=== PATIENT | male | born 1995 ===

== ENCOUNTER 2024-11-19 16:08 | Observation (INO) | payer BC, OTHER ==
[2024-11-19] MEDS ORDERED: ACETAMINOPHEN 500 MG TAB ONE (16:48)
[2024-11-19 16:51] LABS: Absolute Lymphocytes (CBC) 2.8 K/uL (0.7-4.9); Hematocrit 46.3 % (39.6-49.0); Hemoglobin 16.1 g/dL (13.6-17.9); MCH 30.1 pg (27.0-35.0); MCHC 34.9 g/dL (32.0-36.0); MCV 86.3 fL (80-100); MPV 7.9 fL (7.6-11.3); Nucleated RBC Absolute Count 0.0 (0-0); Nucleated Red Blood Cells % 0.1 % (0-0); RBC Red Blood Cell Count 5.36 M/uL (4.33-5.43); White Blood Count 7.90 thou/uL (4.3-10.9)
--- NOTE | 2024-11-19 17:00 | RAD REPORT ---
EXAM: Chest Single View HISTORY: 29 years Male syncope COMPARISON: No prior exams FINDINGS: LUNGS/PLEURA: The lungs are clear. No pleural effusions or pneumothorax. No pulmonary edema. CARDIAC/MEDIASTINUM: The cardiac silhouette is within normal limits. UPPER ABDOMEN: No significant abnormality. BONES: No acute abnormality. LINES/TUBES/OTHER: N/A IMPRESSION: No evidence of acute cardiopulmonary disease.
[2024-11-19 17:09] LABS: ALT/SGPT 103 U/L (16-61); AST/SGOT 33 U/L (15-37); Albumin 4.3 g/dL (3.4-5.0); Albumin/Globulin Ratio 1.2 (1.1-1.8); Alkaline Phosphatase 49 U/L (45-117); Anion Gap 13.2 mEq/L (5.0-15.0); BUN Blood Urea Nitrogen 12 mg/dL (7-18); Bilirubin Indirect, Calculated 0.6 mg/dL (0.2-0.8); Globulin 3.6 g/dL (2.3-3.5); Glucose Level 111 mg/dL (74-106); Magnesium 1.9 mg/dL (1.6-2.4); Potassium 3.2 mEq/L (3.5-5.1); Troponin High Sensitivity 5.9 pg/mL (<58.9)
[2024-11-19 17:13] LABS: NT PRO-BNP < 5 pg/mL (<125)
[2024-11-19 17:16] LABS: D-Dimer 0.241 FEUug/mL (0-0.500); PT Prothrombin Time 13.7 SECONDS (10-13.0); Protime INR 1.22
--- NOTE | 2024-11-19 17:17 | RAD REPORT ---
EXAMINATION: Head Brain Wo Cont CLINICAL INDICATION: Male, 29 years old.SYNCOPE TECHNIQUE: Axial CT images from the skull base to the vertex without intravenous contrast. Coronal an d sagittal reformatted images were created from the data set. One or more of the following dose reduction techniques were used: Automated exposure control, adjustment of the mA and/or kV according to patient size, and/or iterative reconstruction. Unless otherwise specified, incidental findings do not require dedicated imaging follow-up. [id number]. COMPARISON: No prior exams FINDINGS: INTRACRANIAL: No acute intracranial hemorrhage. No acute large vascular territory infarct. No hydroce phalus. No mass effect or midline shift. No significant white matter disease. VASCULATURE: No visualized abnormalities in the arteries or dural venous sinuses. SCALP/SKULL: No calvarial fracture identified. No acute soft tissue abnormality. SINUSES: Trace bilateral maxillary sinus thickening. No significant mastoid fluid. IMPRESSION: No acute intracranial abnormality.
[2024-11-19] MEDS ORDERED: POTASSIUM 25 MEQ EFFERV TAB ONE (19:35)
--- NOTE | 2024-11-19 21:14 | ER ---
Nurse's Notes [facility] Name: Isaac Iqbal Age: 29 yrs Sex: Male : 1995 Arrival Date: 11/19/2024 Time: 16:08 Bed 3 Private MD: Diagnosis: Syncope;Hypokalemia Presentation: 11/19 16:16 Chief complaint: Patient states: STATES FELT LIGHT HEADED AND THEN STARTED TO "PASS db OUT" EMS EVALUATED HR 130. PT CAME BY PRIVATE VEHICLE. STATES FEELS LIGHT HEADED. FACE FELT FLUSHED. FACE BECAME RED AND THEN COULDN'T SEE WELL , VISION BECAME BLURRY AND PEED SELF. Coronavirus screen: Client denies travel out of the [place] in the last 14 days. At this time, the client does not indicate any symptoms associated with coronavirus-19. Ebola Screen: Patient negative for fever greater than or equal to 101.5 degrees Fahrenheit, and additional compatible Ebola Virus Disease symptoms Patient denies exposure to infectious person. Patient denies travel to an Ebola-affected area in the 21 days before illness onset. No symptoms or risks identified at this time. Initial Sepsis Screen: Does the patient meet any 2 criteria? No. Patient's initial sepsis screen is negative. Does the patient have a suspected source of infection? No. Patient's initial sepsis screen is negative. Risk Assessment: Do you want to hurt yourself or someone else? Patient reports no desire to harm self or others. Onset of symptoms was November 19, 2024. 16:16 Method Of Arrival: Ambulatory db 16:16 Acuity: MEIR 3 db Triage Assessment: 16:20 General: Appears in no apparent distress. comfortable, Behavior is calm, cooperative. db Pain: Complains of pain in head. Neuro: Level of Consciousness is awake, alert, obeys commands, Oriented to person, place, time, situation, Reports blurred vision a syncopal episode weakness. Respiratory: Airway is patent Respiratory effort is even, unlabored, Respiratory pattern is regular, symmetrical. Historical: - Allergies: 16:20 No Known Allergies; db - PMHx: 16:20 None; db - PSHx: 16:20 None; db - Immunization history:: Adult Immunizations unknown. - Infectious Disease History:: Denies. - Social history:: Smoking status: Patient denies any tobacco usage or history of. Screenin:20 [facility] ED Fall Risk Assessment (Adult) History of falling in the last 3 months, aa5 including since admission No falls in past 3 months (0 pts) Confusion or Disorientation No (0 pts) Intoxicated or Sedated No (0 pts) Impaired Gait No (0 pts) Mobility Assist Device Used No (0 pt) Altered Elimination No (0 pt) Score/Fall Risk Level 0 - 2 = Low Risk Oriented to surroundings, Maintained a safe environment, Educated pt \\T\\ family on fall prevention, incl call for assistance when getting out of bed, Assessed \\T\\ reinforced patient's understanding of fall precautions. Abuse screen: Denies threats or abuse. Nutritional screening: No deficits noted. Tuberculosis screening: No symptoms or risk factors identified. Assessment: 16:20 General: Appears comfortable, Behavior is calm, cooperative, Pt's reports probable aa5 seizure activity, pt's states "he wasn't shaking but he became very stiff and was out of it for a while" . Pain: Complains of pain in occipital area and base of the skull Pain radiates to forehead Pain currently is 5 out of 10 on a pain scale. Quality of pain is described as aching, pressure, Pain began "after passing out" Is continuous. Neuro: Level of Consciousness is awake, alert, obeys commands, Oriented to person, place, time, situation, Club Car Attendant are equal bilaterally Moves all extremities. Gait is steady, Speech is normal, Facial symmetry appears normal, Reports headache. Cardiovascular: Heart tones S1 S2 present Rhythm is regular. Respiratory: Airway is patent Respiratory effort is even, unlabored, Respiratory pattern is regular, symmetrical. GI: Patient currently denies diarrhea, nausea, vomiting. : Pt's reported pt voided on himself during probable seizure episode. EENT: Reports nasal congestion that is chronic from seasonal allergies. Derm: Skin is pink, warm \\T\\ dry. Musculoskeletal: Range of motion: intact in all extremities. 16:20 Reassessment: Pt states "We were at a restaurant and it was toward the end of the meal aa5 when I started feeling flushed, dizzy, and my vision was going out; I think I passed out because I remember just waking up on the floor afterwards" . 16:52 Reassessment: Patient is alert, oriented x 3, equal unlabored respirations, skin aa5 warm/dry/pink. 19:00 Reassessment: Report received from OMAR Metzger. cc6 19:00 General: Appears in no apparent distress. comfortable, Behavior is calm, cooperative. cc6 Pain: Denies pain. Neuro: Level of Consciousness is awake, alert, obeys commands, Oriented to person, place, time, situation. Cardiovascular: Patient's skin is warm and dry. Rhythm is sinus rhythm. Respiratory: Airway is patent Respiratory effort is even, unlabored, Respiratory pattern is regular, symmetrical. GI: No signs and/or symptoms were reported involving the gastrointestinal system. : No signs and/or symptoms were reported regarding the genitourinary system. EENT: No signs and/or symptoms were reported regarding the EENT system. Derm: No signs and/or symptoms reported regarding the dermatologic system. Musculoskeletal: Range of motion: intact in all extremities. 20:00 Reassessment: Patient and/or family updated on plan of care and expected duration. Pain ha1 level reassessed. Patient is alert, oriented x 3, equal unlabored respirations, skin warm/dry/pink. Patient denies pain at this time. 21:45 Reassessment: Patient and/or family updated on plan of care and expected duration. Pain cc6 level reassessed. Patient is alert, oriented x 3, equal unlabored respirations, skin warm/dry/pink. 23:27 Reassessment: Patient and/or family updated on plan of care and expected duration. Pain cc6 level reassessed. Patient is alert, oriented x 3, equal unlabored respirations, skin warm/dry/pink. Vital Signs: 16:16 BP 143 / 91; Pulse 103; Resp 18; Temp 97.9; Pulse Ox 95% ; Weight 117.93 kg; Height 5 db ft. 8 in. ; 17:55 BP 125 / 77; Pulse 91; Resp 18 S; Pulse Ox 96% on R/A; aa5 19:20 BP 123 / 75; Pulse 86; Resp 18; Pulse Ox 97% on R/A; cc6 19:47 BP 139 / 85 LA; cc6 19:49 BP 120 / 68 RA; Pulse 81; Resp 18 S; Pulse Ox 98% on R/A; ha1 20:30 BP 133 / 90; Pulse 86; Resp 18; Pulse Ox 95% on R/A; cc6 22:05 BP 112 / 73; Pulse 86; Resp 16; Pulse Ox 97% on R/A; cc6 23:27 BP 114 / 66; Pulse 76; Resp 18; Pulse Ox 99% on R/A; cc6 16:16 Body Mass Index 39.53 (117.93 kg, 172.72 cm) db ED Course: 16:12 Patient arrived in ED. sj2 16:16 Anjel Pham PA-C is PHCP. cp 16:16 Anjel Huerta MD is Attending Physician. cp 16:20 Triage completed. db 16:20 Arm band placed on Patient placed in an exam room. db 16:20 Patient has correct armband on for positive identification. Bed in low position. Call aa5 light in reach. Side rails up X2. Adult w/ patient. Client placed on continuous cardiac and pulse oximetry monitoring. NIBP monitoring applied. case monitor on. Pulse ox on. NIBP on. 16:30 EKG done, by ED staff, reviewed by Anjel Pham PA-C. aa5 16:33 Initial lab(s) drawn, by la, sent to lab. Inserted saline lock: 20 gauge in right aa5 antecubital area, using aseptic technique. Blood collected. Flushed with 10 mL NS. 16:35 Domenica Pena, OMAR is Primary Nurse. aa5 16:45 XRAY Chest (1 view) In Process Unspecified. EDMS 17:08 CT Head Brain wo Cont In Process Unspecified. EDMS 18:13 No provider procedures requiring assistance completed. aa5 19:00 Report given to OMAR Christensen and OMAR Davis. aa5 21:13 Maksim Mckenna is Hospitalizing Provider. cp 21:45 CT Chest For PE Angio In Process Unspecified. EDMS 23:28 Patient admitted, IV remains in place. cc6 23:29 Provided Education on: need for admit. cc6 Administered Medications: 16:52 Drug: Acetaminophen PO 1000 mg PO once Route: PO; nh2 17:55 Follow up: Response: No adverse reaction; Pain is decreased aa5 20:21 Drug: Potassium PO Effervescent Tablet 50 mEq PO once; dissolve in 4 ounces of water or cc6 juice Route: PO; 23:31 Follow up: Response: No adverse reaction cc6 Medication: 18:12 VIS not applicable for this client. aa5 Point of Care Testing: Blood Glucose: 11/18 17:13 Blood Glucose: 111 mg/dL; cc6 Ranges: Outcome: 11/19 21:14 Decision to Hospitalize by Provider. cp 23:28 Admitted to Med/surg accompanied by nurse, via wheelchair, room 430, cc6 23:28 Condition: stable 23:31 Patient left the ED. cc6 Signatures: Dispatcher [employer] EDMS Domenica Pena RN RN aa5 Anjel Pham, PA-C PA-C cp Amparo Norris RN RN ha1 Letha Johnston RN RN db Susan Alcantar RN RN cc6 Abe Green Jr RN RN cox branson Daisy Rome 2 Corrections: (The following items were deleted from the chart) 20:33 19:49 BP 120 / 68 R Arm; cc6 ha1 23:30 23:29 Blood Glucose: Blood Glucose Dtpnsdd=771 mg/dL. cc6 cc6
--- NOTE | 2024-11-19 21:14 | EDPHYS ---
Physician Documentation [facility] Name: Isaac Iqbal Age: 29 yrs Sex: Male : 1995 Arrival Date: 11/19/2024 Time: 16:08 Bed 3 Private MD: ED Physician Anjel Huerta HPI: 11/19 16:25 This 29 yrs old Unknown Male presents to ER via Ambulatory with complaints of Syncope, cp Probable Seizure. 16:25 The patient has experienced syncope, lost consciousness. cp 16:25 Onset: The symptoms/episode began/occurred just prior to arrival. Duration: This was a cp single episode, lasted 1-3 minutes. Associated injury: Head/face: reports headache. Current symptoms: headache. Patient reports he had just finished eating when he became lightheaded and lost consciousness. Patient reportedly became stiff and lost bladder function. Historical: - Allergies: 16:20 No Known Allergies; db - PMHx: 16:20 None; db - PSHx: 16:20 None; db - Immunization history:: Adult Immunizations unknown. - Infectious Disease History:: Denies. - Social history:: Smoking status: Patient denies any tobacco usage or history of. ROS: 16:30 Constitutional: Negative for body aches, chills, fever, poor PO intake, cp 16:30 Neuro: Positive for syncope, cp 16:30 Eyes: Negative for injury, pain, redness, and discharge, cp 16:30 Cardiovascular: Negative for chest pain, edema, palpitations, 16:30 Respiratory: Negative for cough, shortness of breath, wheezing, 16:30 Abdomen/GI: Negative for abdominal pain, vomiting, diarrhea, constipation, 16:30 All other systems are negative, Exam: 16:35 Constitutional: The patient appears in no acute distress, alert, awake, cp non-diaphoretic, non-toxic, well developed, well nourished, 16:35 Head/Face: Normocephalic, atraumatic. cp 16:35 Eyes: Periorbital structures: appear normal, Pupils: equal, round, and reactive to light and accomodation, Extraocular movements: intact throughout, Conjunctiva: normal, no exudate, no injection, Sclera: no appreciated abnormality, Lids and lashes: appear normal, bilaterally, 16:35 ENT: External ear(s): are unremarkable, Nose: is normal, Mouth: Lips: moist, Oral mucosa: moist, Posterior pharynx: Airway: no evidence of obstruction, patent, 16:35 Neck: C-spine: vertebral tenderness, is not appreciated, crepitus, is not appreciated, ROM/movement: is normal, is supple, without pain, no range of motions limitations, 16:35 Chest/axilla: Inspection: normal, Palpation: is normal, no crepitus, no tenderness, 16:35 Cardiovascular: Rate: normal, Rhythm: regular, Edema: is not appreciated, JVD: is not appreciated, 16:35 Respiratory: the patient does not display signs of respiratory distress, Respirations: normal, no use of accessory muscles, no retractions, labored breathing, is not present, Breath sounds: are clear throughout, no decreased breath sounds, no stridor, no wheezing, 16:35 Abdomen/GI: Inspection: abdomen appears normal, Palpation: abdomen is soft and non-tender, in all quadrants, 16:35 Back: pain, is absent, ROM is normal, 16:35 Neuro: Orientation: to person, place \T\ time. Mentation: is normal, Cerebellar function: is grossly normal, Motor: moves all fours, strength is normal, Sensation: is normal, 16:37 ECG was reviewed by the Attending Physician. cp Vital Signs: 16:16 BP 143 / 91; Pulse 103; Resp 18; Temp 97.9; Pulse Ox 95% ; Weight 117.93 kg; Height 5 db ft. 8 in. ; 17:55 BP 125 / 77; Pulse 91; Resp 18 S; Pulse Ox 96% on R/A; aa5 19:20 BP 123 / 75; Pulse 86; Resp 18; Pulse Ox 97% on R/A; cc6 19:47 BP 139 / 85 LA; cc6 19:49 BP 120 / 68 RA; Pulse 81; Resp 18 S; Pulse Ox 98% on R/A; ha1 20:30 BP 133 / 90; Pulse 86; Resp 18; Pulse Ox 95% on R/A; cc6 22:05 BP 112 / 73; Pulse 86; Resp 16; Pulse Ox 97% on R/A; cc6 23:27 BP 114 / 66; Pulse 76; Resp 18; Pulse Ox 99% on R/A; cc6 16:16 Body Mass Index 39.53 (117.93 kg, 172.72 cm) db MDM: 16:17 Medical Screening Exam initiated thompson 21:15 Data reviewed: vital signs, nurses notes, lab test result(s), EKG, radiologic studies, cp CT scan, plain films, and as a result, I will admit patient. 21:15 Differential Diagnosis: cardiac arrhythmia, drug effect, GI bleed, idiopathic syncope, cp seizure, vasovagal episode. Management of patient was discussed with the following: Hospitalist: MR Heard who will admit after discussion. I considered the following discharge prescriptions or medication management in the emergency department Medications were administered in the Emergency Department. See MAR. Independent interpretation of the following test(s) in the Emergency Department EKG: See my EKG interpretation above X-Ray: My interpretation is chest image negative for pneumonia. Counseling: I had a detailed discussion with the patient and/or guardian regarding the historical points, exam findings, and any diagnostic results supporting the discharge/admit diagnosis, lab results, radiology results, the need for further work-up and treatment in the hospital. Response to treatment: the patient's symptoms have markedly improved after treatment. 11/19 16:24 Order name: Basic Metabolic Panel; Complete Time: 17:42 cp 11/19 17:42 Interpretation: Normal except: K 3.2; GLUC 111; GFR 86. cp 11/19 16:24 Order name: CBC with Diff; Complete Time: 17:42 cp 11/19 16:24 Order name: D-Dimer; Complete Time: 17:42 cp 11/19 17:43 Interpretation: Reviewed. cp 11/19 16:24 Order name: LFT's; Complete Time: 17:42 cp 11/19 17:42 Interpretation: Normal except: ALT 103; GLOB 3.6. cp 11/19 16:24 Order name: Magnesium; Complete Time: 17:42 cp 11/19 16:24 Order name: NT PRO-BNP; Complete Time: 17:42 cp 11/19 16:24 Order name: PT-INR; Complete Time: 17:42 cp 11/19 16:24 Order name: Troponin HS; Complete Time: 17:42 cp 11/19 16:24 Order name: UDS cp 11/19 18:45 Order name: Troponin High Sensitivity; Complete Time: 21:07 cp 11/19 16:24 Order name: XRAY Chest (1 view); Complete Time: 17:42 cp 11/19 16:51 Order name: CT Head Brain wo Cont; Complete Time: 17:42 cp 11/19 21:17 Order name: CT Chest For PE Angio; Complete Time: 22:14 cp 11/19 22:28 Order name: EEG Request EDMS 11/19 22:28 Order name: EEG Request EDMS 11/19 22:29 Order name: Brain With Cont EDMS 11/19 22:29 Order name: Brain With Cont EDMS 11/19 16:24 Order name: Cardiac monitoring; Complete Time: 16:35 cp 11/19 16:24 Order name: EKG - Nurse/Tech; Complete Time: 16:35 cp 11/19 16:24 Order name: IV Saline Lock; Complete Time: 16:35 cp 11/19 16:24 Order name: Labs collected and sent; Complete Time: 16:35 cp 11/19 16:24 Order name: O2 Per Protocol; Complete Time: 16:35 cp 11/19 16:24 Order name: O2 Sat Monitoring; Complete Time: 16:35 cp 11/19 18:36 Order name: Blood Pressure Recheck: bilateral upper extremity; Complete Time: 20:22 cp EC:37 Rate is 85 beats/min. Rhythm is regular. OH interval is normal. QRS interval is normal. cp QT interval is normal. T waves are Inverted in leads III, aVR. Interpreted by me. Reviewed by me. Administered Medications: 16:52 Drug: Acetaminophen PO 1000 mg PO once Route: PO; nh2 17:55 Follow up: Response: No adverse reaction; Pain is decreased aa5 20:21 Drug: Potassium PO Effervescent Tablet 50 mEq PO once; dissolve in 4 ounces of water or cc6 juice Route: PO; 23:31 Follow up: Response: No adverse reaction cc6 Point of Care Testing: Blood Glucose: 11/18 17:13 Blood Glucose: 111 mg/dL; cc6 Ranges: Critical Glucose Levels:Adult <50 mg/dl or >400 mg/dl <40 mg/dl or >180 mg/dl Disposition Summary: 11/19/24 21:14 Hospitalization Ordered Notes: Hospitalization Status: Observation cp Provider: Maksim Mckenna cp Location: Telemetry/MedSurg (observation) cp Condition: Stable cp Problem: new cp Symptoms: have improved cp Bed/Room Type: Standard cp Room Assignment: 430(11/19/24 22:36) vk Diagnosis - Syncope cp - Hypokalemia cp Forms: - Medication Reconciliation Form cp - SBAR form cp - Leadership Thank You Letter cp Signatures: Dispatcher [employer] Anjel Steele MD MD cha Page, Corey, PA-C PA-C cp Letha Johnston, RN RN db Liberty Carrillo Cassandra, RN RN cc6 Abe Green Jr, RN RN nh2 Domenica Pena RN aa5 Corrections: (The following items were deleted from the chart) 11/19 16:25 16:25 BASIC METABOLIC PANEL+C.LAB.BRZ ordered. EDMS EDMS 16:25 16:25 CBC+H.LAB.BRZ ordered. EDMS EDMS 16:25 16:25 D-DIMER+COAG.LAB.BRZ ordered. EDMS EDMS 16:25 16:25 HEPATIC FUNCTION+C.LAB.BRZ ordered. EDMS EDMS 16:25 16:25 MAGNESIUM+C.LAB.BRZ ordered. EDMS EDMS 16:25 16:25 PROBNP+C.LAB.BRZ ordered. EDMS EDMS 16:25 16:25 PROTIME (+INR)+COAG.LAB.BRZ ordered. EDMS EDMS 16:25 16:25 Troponin High Sensitivity+C.LAB.BRZ ordered. EDMS EDMS 16:25 16:25 URINE DRUG SCREEN+UC.LAB.BRZ ordered. EDMS EDMS 16:25 16:25 Chest Single View+RAD.RAD.BRZ ordered. EDMS EDMS 21:18 21:18 Chest For PE Angio+CT.RAD.BRZ ordered. EDMS EDMS 22:36 21:14 cp vk
--- NOTE | 2024-11-19 21:59 | RAD REPORT ---
EXAMINATION: CTA CHEST PE CLINICAL INDICATION: Male, 29 years old. syncope TECHNIQUE: This examination was performed according to an angiographic protocol with 3D post-processi ng. This involves 3D reconstructions, MIPs, volume rendered images and/or shaded surface rendering. One or more of the following dose reduction techniques were used: Automated exposure control, adjustm ent of the mA and/or kV according to patient size, and/or iterative reconstruction. Unless otherwise specified, incidental findings do not require dedicated imaging follow-up. [id number]. COMPARISON: No priors. FINDINGS: LOWER NECK: Visualized thyroid gland and soft tissues are normal. MEDIASTINUM AND LYMPH NODES: No mediastinal mass or fluid collection. Normal size mediastinal, hilar, and axillary lymph nodes. Diffuse esophageal wall thickening. THORACIC AORTA: No thoracic aortic aneurysm. PULMONARY ARTERIES: Caliber is within normal limits. No pulmonary emboli identified. HEART: Normal heart size. No coronary calcifications.No significant pericardial effusion. LUNGS AND AIRWAYS: No evidence of airspace or interstitial process. No suspicious and/or stable pulmo nary nodules. PLEURA: No pleural effusions. No pneumothorax. OSSEOUS STRUCTURES AND CHEST WALL: No fracture or suspicious osseous lesions. UPPER ABDOMEN: No acute abnormalities. Hepatic steatosis. IMPRESSION: Negative for pulmonary embolism. No other acute process identified in the chest.
--- NOTE | 2024-11-19 22:35 | P.HP ---
Certification for Inpatient Patient admitted to: Observation With expected LOS: <2 Midnights Patient will require the following post-hospital care: None Practitioner: I am a practitioner with admitting privileges, knowledge of patient current condition, hospital course, and medical plan of care. Services: Services provided to patient in accordance with Admission requirements found in Title 42 Section 412.3 of the Code of Federal Regulations Patient History Date of Service: 11/19/24 Reason for admission: Syncope versus new onset seizure. History of Present Illness: Patient is a pleasant 29-year-old male with no past medical history according to the patient, who presents to the ER today complaining of symptoms which appears to be related to syncope versus new onset seizure. Patient states today he and his went to the beach, states after they left the beach they went to the restaurant to eat, states after they were through eating, he was sitting waiting to collect his check when all of a sudden he became severely dizzy, states "i felt exhausted like I just ran", blurry vision, then immediately passed out and states he could not remember anything after until he woke up. Patient states when he woke up he was on the floor, states the told him that when he passed out, he was really tensed, clenching both fist, and urinated on himself, states when he woke up he was just staring, then eventually he was able to start communicating. States after this event, he had mild associated shortness of breath, tachycardia, increased blood pressure, and headache. Patient cannot tell exactly how long the entire event took. Patient denies of any history of seizure, denies of use of illicit drugs, or drinking alcohol. Patient states he does not have any family history of seizure disorder, states he has never had such an event before. States he was not drooling, or clench his teeth during this episode according to the . On admission assessment, patient was fully awake, alert and oriented x 3, endorses mild headache, denies of any chest pain, shortness of breath, nausea or vomiting, abdominal pain, blurred vision, tinnitus, or any other discomfort at this time. Patient states he felt better. Course in ER. (1) CT chest PE. Impression: Negative for pulmonary embolism. No other acute process identified in the chest. (2) CT head. Impression: No acute intracranial abnormality. (3) chest x-ray. Impression: No evidence of acute cardiopulmonary disease. Allergies No Known Allergies Allergy (Unverified 11/19/24 22:41) - Past Medical/Surgical History Diabetic: No -: States no past medical hx -: States no past surgical hx. - Social History Smoking Status: Never smoker Smoking therapy provided: No Patient receptive to therapy: No Alcohol use: No CD- Drugs: No Caffeine use: No Place of Residence: Home Review of Systems 10-point ROS is otherwise unremarkable Neurological: Other (dizziness,sycope vs New onset seizure) Physical Examination - Physical Exam General: Alert, In no apparent distress, Oriented x3, Cooperative HEENT: Atraumatic, Normocephalic, PERRLA, Mucous membr. moist/pink, Sclerae nonicteric Neck: Supple, 2+ carotid pulse no bruit, JVD not distended, No Thyromegaly, No LAD, Without JVD or thyroid abnormality Respiratory: Clear to auscultation bilaterally, Normal air movement Cardiovascular: No edema, Normal pulses, Regular rate/rhythm, Normal S1 S2, No gallops, No rubs, No murmurs Capillary refill: <2 Seconds Gastrointestinal: Normal bowel sounds, Soft and benign, Non-distended, W/out hepatomegaly, W/out splenomegaly, No ascites, No tenderness, No masses, No rebound, No guarding Musculoskeletal: No clubbing, No swelling, No contractures, No erythema, No tenderness, No warmth Integumentary: No rashes, No breakdown, No significant lesion, No tenderness/swelling, No erythema, No warmth, No cyanosis Neurological: Normal gait, Normal speech, Normal strength at 5/5 x4 extr, Normal tone, Sensation intact, Cranial nerves 3-12 intact, Normal reflexes 2+, Normal affect Lymphatics: No axilla or inguinal lymphadenopathy - Studies Laboratory Data (last 24 hrs) 11/19/24 11/19/24 11/19/24 16:33 16:33 16:33 WBC 7.90 Hgb 16.1 Hct 46.3 Plt Count 255 PT 13.7 H INR 1.22 Sodium 139 Potassium 3.2 L BUN 12 Creatinine 1.18 Glucose 111 H Magnesium 1.9 Total Bilirubin 0.8 AST 33 ALT 103 H Alkaline Phosphatase 49 Male Exam - Male Exam Inguinal exam: No hernias Assessment and Plan - Plan Patient brought to the ER after having an episode concerning of syncope versus new onset seizure. No further subsequent events noted. (1)Acute syncope versus new onset seizure. -Consult neurologist Dr. Vallejo. -Order MRI brain. -Order EEG. - IV half NS at 100 mL/ hr x 2 later. Patient mucous membrane is dry, and patient states he has not drank enough water today. Patient GFR is 86. -Assessed patient bilateral carotid with no bruit noted. Will defer on doing carotid ultrasound at this time, and will proceed as noted above. (2) DVT prophylaxis. -Lovenox 40 mg subcu daily. (3)Hypokalemia of 3.2. Patient received K-Lyte 50 mEq in ER. -Order follow-up CMP in the morning. -Order for potassium replacement protocol. (4)Explained the entire treatment plan to the patient, solicited questions answered and voiced understanding. Discharge Plan: Home Plan to discharge in: 48 Hours - Advance Directives Does patient have a Living Will: No Does patient have a Durable POA for Healthcare: No - Code Status/Comfort Care Code Status Assessed: Yes Code Status: Full Code Critical Care: No Time Spent Managing Pts Care (In Minutes): 55
[2024-11-19] MEDS ORDERED: ACETAMINOPHEN 325 MG TABLET PO PRN (22:36)
[2024-11-20 00:38] VITALS: O2SAT 99
[2024-11-20] MEDS: NACHLORIDE 0.45% 1,000 ML IV SCH (01:18)
[2024-11-20 01:40] VITALS: BMI 39.5
[2024-11-20 06:09] LABS: Absolute Lymphocytes (CBC) 3.0 K/uL (0.7-4.9); Hematocrit 41.7 % (39.6-49.0); Hemoglobin 14.8 g/dL (13.6-17.9); MCH 30.4 pg (27.0-35.0); MCHC 35.5 g/dL (32.0-36.0); MCV 85.7 fL (80-100); MPV 7.6 fL (7.6-11.3); Nucleated RBC Absolute Count 0.0 (0-0); Nucleated Red Blood Cells % 0.2 % (0-0); RBC Red Blood Cell Count 4.87 M/uL (4.33-5.43); White Blood Count 8.20 thou/uL (4.3-10.9)
[2024-11-20 06:29] LABS: ALT/SGPT 81.0 U/L (16-61); AST/SGOT 18.0 U/L (15-37); Albumin 3.7 g/dL (3.4-5.0); Albumin/Globulin Ratio 1.1 (1.1-1.8); Alkaline Phosphatase 46.0 U/L (45-117); Anion Gap 10.0 mEq/L (5.0-15.0); BUN Blood Urea Nitrogen 9.0 mg/dL (7-18); Globulin 3.4 g/dL (2.3-3.5); Glucose Level 103.0 mg/dL (74-106); Magnesium 2.2 mg/dL (1.6-2.4); Potassium 4.0 mEq/L (3.5-5.1)
[2024-11-20] MEDS: ENOXAPARIN 40 MG/0.4 ML SQ SCH (09:15)
[2024-11-20] MEDS ORDERED: FLU (Fluarix) 25-26 (6MOS UP)/PF 45 MCG/0.5 ML Syringe IM ONE (09:15)
[2024-11-20] MEDS ORDERED: PNEUMOCOCCAL VACCINE 0.5 ML IMVAC ONE (10:00)
--- NOTE | 2024-11-20 10:35 | RAD REPORT ---
EXAMINATION: MRI BRAIN WITHOUT AND WITH CONTRAST CLINICAL INDICATION: Syncope TECHNIQUE: Multiplanar multisequence MR images of the brain were obtained without and with 20 cc MultiHance admi nistered intravenously. COMPARISON: Head CT November 19, 2024 No significant abnormal signal within the brain. Hippocampal gyri normal caliber and signal. Diffusion weighted/ADC mapping images do not reveal evidence of an acute infarction No abnormal enhancement within the brain visualized. Ventricles are normal caliber No extra-axial fluid collection No fluid within the visualized sinuses/mastoids. IMPRESSION: No acute intracranial abnormality seen.
--- NOTE | 2024-11-20 14:56 | P.PN ---
Date of Service: 11/20/24 Subjective: Seen resting with his girlfriend. Denies any seizure-like activity. No history of illicit drug use. Denies fevers and chills. Voiding and having regular bowel movements. Discussed with nursing staff at bedside. Review of Systems 10-point ROS is otherwise unremarkable Neurological: Other (dizziness,sycope vs New onset seizure) Physical Examination - Physical Exam General: Alert, In no apparent distress, Oriented x3, Cooperative HEENT: Atraumatic, Normocephalic, PERRLA, Mucous membr. moist/pink, Sclerae nonicteric Neck: Supple, 2+ carotid pulse no bruit, JVD not distended, No Thyromegaly, No LAD, Without JVD or thyroid abnormality Respiratory: Clear to auscultation bilaterally, Normal air movement Cardiovascular: No edema, Normal pulses, Regular rate/rhythm, Normal S1 S2, No gallops, No rubs, No murmurs Capillary refill: <2 Seconds Gastrointestinal: Normal bowel sounds, Soft and benign, Non-distended, W/out hepatomegaly, W/out splenomegaly, No ascites, No tenderness, No masses, No rebound, No guarding Musculoskeletal: No clubbing, No swelling, No contractures, No erythema, No tenderness, No warmth Integumentary: No rashes, No breakdown, No significant lesion, No tenderness/swelling, No erythema, No warmth, No cyanosis Neurological: Normal gait, Normal speech, Normal strength at 5/5 x4 extr, Normal tone, Sensation intact, Cranial nerves 3-12 intact, Normal reflexes 2+, Normal affect Lymphatics: No axilla or inguinal lymphadenopathy - Studies Laboratory Data (last 24 hrs) 11/19/24 11/19/24 11/19/24 16:33 16:33 16:33 WBC 7.90 Hgb 16.1 Hct 46.3 Plt Count 255 PT 13.7 H INR 1.22 Sodium 139 Potassium 3.2 L BUN 12 Creatinine 1.18 Glucose 111 H Magnesium 1.9 Total Bilirubin 0.8 AST 33 ALT 103 H Alkaline Phosphatase 49 Male Exam - Male Exam Inguinal exam: No hernias Assessment and Plan - Plan Patient brought to the ER after having an episode concerning of syncope versus new onset seizure. No further subsequent events noted. 11/20 - CBC and CMP reviewed without any gross abnormality - EEG pending - MRI brain negative -Consult neurologist Dr. Vallejo. -Order MRI brain. -Order EEG. - IV half NS at 100 mL/ hr x 2 later. Patient mucous membrane is dry, and patient states he has not drank enough water today. Patient GFR is 86. -Assessed patient bilateral carotid with no bruit noted. Will defer on doing carotid ultrasound at this time, and will proceed as noted above. (2) DVT prophylaxis. -Lovenox 40 mg subcu daily. (3)Hypokalemia of 3.2. Patient received K-Lyte 50 mEq in ER. -Order follow-up CMP in the morning. -Order for potassium replacement protocol. (4)Explained the entire treatment plan to the patient, solicited questions answered and voiced understanding. Discharge Plan: Home Plan to discharge in: 48 Hours - Advance Directives Does patient have a Living Will: No Does patient have a Durable POA for Healthcare: No - Code Status/Comfort Care Code Status Assessed: Yes Code Status: Full Code
--- NOTE | 2024-11-20 16:31 | P.DS ---
Admission Date: 11/19/24 Discharge Date: 11/20/24 Disposition: ROUTINE DISCHARGE Discharge Condition: GOOD Reason for Admission: Syncope versus new onset seizure. Vital Signs/Physical Exam: Temp Pulse Resp BP Pulse Ox 98.0 F 65 16 157/67 H 98 11/20/24 12:00 11/20/24 12:00 11/20/24 12:00 11/20/24 12:00 11/20/24 12:00 Laboratory Data at Discharge: WBC 8.20 thou/uL (4.3-10.9) 11/20/24 05:42 Hgb 14.8 g/dL (13.6-17.9) D 11/20/24 05:42 Hct 41.7 % (39.6-49.0) 11/20/24 05:42 Plt Count 267 thou/uL (152-406) 11/20/24 05:42 PT 13.7 SECONDS (10-13.0) H 11/19/24 16:33 INR 1.22 11/19/24 16:33 Sodium 141 mEq/L (136-145) 11/20/24 05:42 Potassium 4.0 mEq/L (3.5-5.1) D 11/20/24 05:42 BUN 9 mg/dL (7-18) 11/20/24 05:42 Creatinine 0.91 mg/dL (0.70-1.30) 11/20/24 05:42 Glucose 103 mg/dL (74-106) 11/20/24 05:42 Magnesium 2.2 mg/dL (1.6-2.4) 11/20/24 05:42 Total Bilirubin 0.5 mg/dL (0.2-1.0) 11/20/24 05:42 AST 18 U/L (15-37) 11/20/24 05:42 ALT 81 U/L (16-61) H 11/20/24 05:42 Alkaline Phosphatase 46 U/L (45-117) 11/20/24 05:42 Home Medications: NK [No Home Meds] 11/20/24 Followup: NONE,NONE [Primary Care Provider] - Johnnie Vallejo MD [ASSOCIATE-ACTIVE - CAN ADMIT] -
[2024-11-20 16:45] VITALS: BP 142/73; TEMP 98.1
[2024-11-20] MEDS: FLU (Fluarix) 25-26 (6MOS UP)/PF 45 MCG/0.5 ML Syringe IM ONE (17:12)
[2024-11-20] MEDS: PNEUMOCOCCAL VACCINE 0.5 ML IMVAC ONE (17:12)
--- NOTE | 2024-11-20 20:08 | CON ---
Reason For Consultation: Consultation called because of possible new onset seizures versus syncope. History Of Present Illness: Mr. Iqbal is a 29-year-old patient with no significant past medical his tory. His of 10 years is in the room. She witnessed the episode. They were out eating, he act ually had an alcoholic drink, at least 12 ounces of alcohol when he suddenly apparently got somewhat dizzy, lightheaded, or felt faint. He told her he felt exhausted just like I ran and had blurred vis ion. At that point, he at the end passed out, his head extended and he had some slight tremoring of the arms and his forearms were flexed towards his face as he extended backwards. He was sitting in a chair. At that point, his tried to hold him up and bystanders did try to help, but he still ca me out of the chair as he tensed up and clenched his fists. He was on the floor and urinated on hims elf and then did bite his tongue. The stiff part lasted perhaps a minute or a minute and half, was f ollowed by a minute and half to 2 minutes of significant decrease in his tone and unresponsiveness. He woke up and was confused about what was happened, why people were around and why the police were p resent, and he was brought into hospital. The patient did and his did say in retrospect that he has had some episodes of a similar feeling of his blurred vision, feeling very tired and he is going to pass out but never as it progressed to the that it was occurred. His was also no deandre at times he seemed to apparently not be his usual self, but she could not pinpoint more accuratel y what the change in his behavior was. In any event, there was no prior known history of seizures. There is no family history of seizures. He denies history of stroke, any significant head trauma wit h loss of consciousness and besides the alcohol, denies any IV drugs or cigarette smoking. Past Medical History: No significant past medical history. Allergies: NO KNOWN DRUG ALLERGIES. Social History: Alcohol . Review of Systems: fevers, chills, nausea, vomiting, myalgias, arthralgias, rashes, psychiatric complaints, g astrointestinal or genitourinary complaints. Physical Examination: Vital Signs: Blood pressure is ranging 114 to 157 over 66 to 80, pulse ranged from 65 to 76, respira tory rate 16 to 18, temperature 98.2, oxygen saturation 98%. Weight 260 pounds, height 5 feet 8 inch es, BMI 39.5. General: Mr. Iqbal is sitting in his bed, is at bedside. HEENT: He appears normocephalic, atraumatic. Sclerae anicteric. Oropharynx pink and moist. Neck: Supple. Chest: Clear. Heart: Regular. Extremities: No significant clubbing, cyanosis, or edema. Neurologic: He has no focal neurologic deficits. Intact cranial nerves 2 through 12. Motor examina tion 5/5 proximally and distally in the upper and lower extremities. Sensation is intact in the uppe r and lower extremities. Coordination intact. Reflexes are symmetric. Gait is intact. Laboratory Studies: Complete blood count with differential is completely normal. INR 1.22. His com prehensive metabolic panel is unremarkable except his ALT is elevated up to 103. His glucose was 111 , potassium corrected from 2.2 to 4.0. His toxicology screen was negative as the drug screen. Imaging: Brain MRI done earlier today showed no acute intracranial abnormalities. Hippocampal gyri are normal clot. His CT of the chest and thorax showed no significant abnormalities. Neg ative for any pulmonary embolism. Assessment And Plan: Mr. Iqbal is a 29-year-old patient with possible new onset recognized seizures . Seizures are likely to begin simple, then become complex and partial with secondary generalization . He does have prior events, stereotyped where he feels this prodrome of dizziness, lightheadedness, but could pass without going into a seizure. The presence of tongue biting and loss of urine contro l is highly consistent with a seizure. His has noted episodes but she could not define further where strange or unusual behaviors are taking place. If alcohol was used, suggested lamont ring his threshold. His plan, at this point, we will get a routine EEG. The results will be reviewe d in hospital. The patient will be discharged home. He and his will maintain a diary of events and will at followup potentially have an ambulatory video EEG monitoring for event characterization. He is advised to not to drink alcohol, may actually begin a regimen of vitamin complex a nd perhaps monitor for any untoward any falling, any sudden loss of awareness, any trippin g or falling when there is no clear explanation. 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 He will follow up in Dr. Vallejo's clinic for further evaluation and he will di scharge home today. JOAO Voice ID: [id number] Report ID: [id number]
--- NOTE | 2024-11-21 14:21 | EEG ---
CHART: [id number] TEST ID#: [id number] DATE OF STUDY: THE EEG WAS RECORDED PORTABLE IN THE PATIENT'S ROM ON A 17 CHANNEL MACHINE. ELECTRODES WERE APPLIED IN THE USUAL MANNER USING THE INTERNATIONAL 10-20 SYSTEM. THE WAKING BACKGROUND RHYTHM IN THIS RECORD CONSISTS OF VERY WELL DEVELOPED AND WELL ORGANIZED WAVES OF 10 HZ., MAXIMAL IN THE POSTERIOR HEAD REGIONS WHICH ATTENUATE NORMALLY WITH EYE OPENING. LOW-VOLTAGE 18-22 HZ ACTIVITY IS EXPRESSED IN THE FRONTAL REGIONS. THERE ARE NO FOCAL OR LATERALIZING FEATURES. NO EPILEPTIFORM ACTIVITY APPEARS. SLEEP OCCURRED NATURALLY. IN ADDITION TO NORMAL SLEEP PATTERNS ARE PRESENT. HYPERVENTILATION WAS NOT PERFORMED. PHOTIC STIMULATION PRODUCED POOR DRIVING BILATERALLY. IMPRESSION: NORMAL EEG FOR THE AGE OF THE PATIENT IN [place], DROWSINESS AND SLEEP.
== END 2024-11-20 17:40 | disposition home or self-care (01) ==
LOC: ER 16:08 → ERHOLD 22:19 → 4TH 23:29
PROVIDERS: ADMIT Family Medicine; ATTEND Family Medicine
DX: R55 Syncope and collapse (principal); E87.6 Hypokalemia
CPT/HCPCS: 93005; 95819; 85025 ×2; 80048; 36415; 83735 ×2; 85610; 85379; 80076; 84484 ×2; 80053; 83880; 70450; 71275; 71045; 90471; 70553; 90732; 90656; 99285; Q9967; A9577; J1650; G0378 ×3